=== PATIENT | male | born 1975 | race Caucasian/White ===

== ENCOUNTER 2018-05-22 17:11 | Emergency (ER) | payer SELFPAY ==
[2018-05-22] MEDS ORDERED: Fluorescein Sod TOPICAL 0.6* 0.6 MG TEST OPHTHALMIC ONE (19:38)
[2018-05-22] MEDS ORDERED: Tetracaine 0.5% OPTH.SOL 4 ML* 1 DROP BTL ONE (19:38)
[2018-05-22] MEDS ORDERED: Polymyx/Trimethoprim OPTH* 10 ML BTL RIGHT EYE ONE (20:18)
--- NOTE | 2018-05-22 20:18 | ED ---
Throat Pain/Nasal Congestion - HPI Summary HPI Summary: 42-year-old male presents with drainage from right eye and pain right eye. 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 He states he is on medications that make him immune compromised. States he has history of uveitits and glaucoma. Has not had a flareup of glaucoma in years. 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 Sometimes sees shapes in right eye and has some light sensitivity right eye. States over the past couple days has loss of light sensitivity in right eye. States 8 days ago girl friend was diagnosed with herpes simplex started to develop pain in eye He states that he talked his doctor in [place] put him on Valtrex for the past 3 days. He states no improvement with such. He has been having clear drainage from his eye. - History of Current Complaint Chief Complaint: EDEyeProblem Time Seen by Provider: 05/22/18 19:38 - Allergies/Home Medications Allergies/Adverse Reactions: Allergies Allergy/AdvReac Type Severity Reaction Status Date / Time No Known Allergies Allergy Verified 05/22/18 18:22 PMH/Surg Hx/FS Hx/Imm Hx Endocrine/Hematology History: Reports: Other Endocrine/Hematological Disorders - ankylosis spondylsis Denies: Hx Anticoagulant Therapy Sensory History: Reports: Hx Glaucoma, Hx Legally Blind, Hx Vision Problem Infectious Disease History: No Infectious Disease History: Denies: Traveled Outside the [place] in Last 30 Days - Family History Known Family History: Positive: Diabetes - Social History Alcohol Use: Rare Substance Use Type: Reports: Marijuana Smoking Status (MU): Never Smoked Tobacco Review of Systems Negative: Fever Positive: Drainage, Other - decrease in light senstivity Negative: Chest Pain Negative: Shortness Of Breath All Other Systems Reviewed And Are Negative: Yes Physical Exam Triage Information Reviewed: Yes Vital Signs On Initial Exam: Initial Vitals Temp Pulse Resp BP Pulse Ox 97.6 F 80 16 116/82 98 05/22/18 18:17 05/22/18 18:17 05/22/18 18:17 05/22/18 18:17 05/22/18 18:17 Vital Signs Reviewed: Yes Appearance: Positive: Well-Appearing Skin: Positive: Warm, Dry Head/Face: Positive: Normal Head/Face Inspection Eyes: Positive: Normal, EOMI, Conjunctiva Inflammed, Discharge - watery ENT: Positive: Pharynx normal, TMs normal Respiratory/Lung Sounds: Positive: Clear to Auscultation, Breath Sounds Present Cardiovascular: Positive: Normal, RRR Musculoskeletal: Positive: Normal Neurological: Positive: Normal Psychiatric: Positive: Normal Procedures - Eye Procedure Right Alcaine Drops Administered: Yes - no dendritic ulcer or uptake seen Diagnostics - Vital Signs Vital Signs Temp Pulse Resp BP Pulse Ox 05/22/18 18:17 97.6 F 80 16 116/82 98 - Laboratory Lab Statement: Any lab studies that have been ordered have been reviewed, and results considered in the medical decision making process. EENT Course/Dx - Course Course Of Treatment: 42-year-old male presents with drainage from right eye and pain right eye. 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 He states he is on medications that make him immune compromised. States he has history of uveitits and glaucoma. Has not had a flareup of glaucoma in years. 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 Sometimes sees shapes in right eye and has some light sensitivity right eye. States over the past couple days has loss of light sensitivity in right eye. States 8 days ago girl friend was diagnosed with herpes simplex started to develop pain in eye He states that he talked his doctor in [place] put him on Valtrex for the past 3 days. He states no improvement with such. He has been having clear drainage from his eye. On exam conjunctiva injected. Extraocular movements intact. No uptake on fluorescein exam and no dendritic ulcer seen. Will have continue Valtrex. Discussed with Dr. Coronel will have add polytrim in case is conjunctivitis. We'll give referral to optho for further evaluation. Patient understands agrees with plan. - Differential Diagnoses Differential Diagnoses: Conjunctivitis, Corneal Abrasion, Glaucoma, Keratitis, Uveitis - Diagnoses Provider Diagnoses: Eye drainage Discharge - Sign-Out/Discharge Documenting (check all that apply): Patient Departure - Discharge Plan Condition: Good Disposition: HOME Referrals: No Primary Care Phys,NOPCP [Primary Care Provider] - Caleb Hanson MD [Medical Doctor] - Additional Instructions: Place 1 drop in eye four times a day for 5 days continue valtrex Wash hands after touching eye Follow up with ophthalmology Return to ED if develop any new or worsening symptoms - Billing Disposition and Condition Condition: GOOD Disposition: Home
[2018-05-22 20:41] VITALS: BP 137/94
== END 2018-05-22 20:40 | disposition home or self-care (01) ==
LOC: ED 17:11
DX: H57.8 Other specified disorders of eye and adnexa (principal); H57.11 Ocular pain, right eye
CPT/HCPCS: 99282; A9270-GY

== ENCOUNTER 2019-06-03 22:53 | Emergency (ER) | payer MEDICARE, OTHER ==
[2019-06-03 23:50] LABS: ABS Eosinophils 0.1 10^3/ul (0-0.6); ABS Lymphocytes 1.3 10^3/ul (1.0-4.8); ABS Monocytes 0.7 10^3/ul (0-0.8); Eosinophil % 0.7 %; Hematocrit 37 % (42-52); Hemoglobin 11.9 g/dL (14.0-18.0); Lymphocyte % 12.9 %; Mean Corpuscular HGB Conc 33 g/dL (31-36); Mean Corpuscular Hemoglobin 24 pg (27-31); Mean Corpuscular Volume 75 fL (80-94); Mean Platelet Volume 6.9 fL (7.4-10.4); Nucleated Red Blood Cells % 0.1; Platelet Count 299 10^3/uL (150-450); Red Cell Distribution Width 16 % (10-15)
[2019-06-04 00:10] LABS: Albumin 3.6 g/dL (3.2-5.2); Albumin/Globulin Ratio 0.8 (1-3); BUN/Creatinine Ratio 15.4 (8-20); C Reactive Protein 221.33 mg/L (<8.01); Calcium 8.9 mg/dL (8.6-10.3); EGFR African American 132.7 (>60); EGFR Non-African American 109.7 (>60); Globulin 4.4 g/dL (2-4); Potassium 3.9 mmol/L (3.5-5.0); Total Bilirubin 0.5 mg/dL (0.2-1.0)
--- NOTE | 2019-06-04 00:56 | ED ---
Skin Complaint - HPI Summary HPI Summary: Patient is a 43 y/o M w/ Hx of JRA who presents to [facility] with complaints of right leg redness, difficulty walking and fever. He reports fever onset six days ago and redness of right leg onset 4-5 days ago. 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 Patient reports that he was evaluated by a doctor "friend" three days ago, who prescribed him Keflex. He states that he had a conversation with his PCP, who advised him to come to ED as patient has continued to have difficulty with ambulation. He denies injuries and previous issues with skin infections. He is visiting from [place]. On triage, pain is rated 5/10, movement and ambulation aggravate Sx. Home medications and allergies are reviewed. - History of Current Complaint Chief Complaint: EDExtremityLower Time Seen by Provider: 06/03/19 23:14 Stated Complaint: STAPH INFECTION ON RT LEG Hx Obtained From: Patient Onset/Duration: Started Days Ago, Still Present Skin Exposure Onset/Duration: Days Ago Timing: Constant, Lasting Days Current Severity: Moderate Pain Intensity: 5 Pain Scale Used: 0-10 Numeric Skin Location: Leg - right leg Character: Redness Aggravating Symptom(s): Other: - movement, ambulation Alleviating Symptom(s): Nothing Associated Signs & Symptoms: Fever - Allergy/Home Medications Allergies/Adverse Reactions: Allergies Allergy/AdvReac Type Severity Reaction Status Date / Time No Known Allergies Allergy Verified 06/03/19 22:57 PMH/Surg Hx/FS Hx/Imm Hx Endocrine/Hematology History: Reports: Other Endocrine/Hematological Disorders - ankylosis spondylsis Denies: Hx Anticoagulant Therapy Sensory History: Reports: Hx Glaucoma, Hx Legally Blind, Hx Vision Problem Opthamlomology History: Reports: Hx Glaucoma, Hx Legally Blind, Hx Vision Problem Infectious Disease History: No Infectious Disease History: Denies: Traveled Outside the [place] in Last 30 Days - Family History Known Family History: Positive: Diabetes - Social History Alcohol Use: Rare Substance Use Type: Reports: Marijuana Smoking Status (MU): Never Smoked Tobacco Review of Systems Positive: Fever Musculoskeletal: Other - positive - difficulty ambulating Skin: Other - positive - right leg redness All Other Systems Reviewed And Are Negative: Yes Physical Exam - Summary Physical Exam Summary: Appearance: Well-appearing, Well-nourished, lying in bed comfortably Skin: There is erythema and warmth from anterior ankle up the right leg, ending 2-3 inches below the knee. The area is not circumferential and spares several inches on posterior of leg. There is no discrete fluctuance or fluid collection , no lymphangetic streaking. There is no blanching, there are discrete borders. Eyes: sclera anicteric, no conjunctival pallor ENT: mucous membranes moist, pharynx appears normal Neck: Supple, nontender Respiratory: Clear to auscultation, no signs of respiratory distress Cardiovascular: Normal S1, S2. No murmurs. Normal distal pulses in tibial and radial bilaterally. Abdomen: Soft, nontender, normal active bowel sounds present Musculoskeletal: Normal, Strength/ROM Intact Neurological: A&Ox3, awake and alert, mentation is normal, speech is fluent and appropriate Psychiatric: affect is normal, does not appear anxious or depressed Triage Information Reviewed: Yes Vital Signs On Initial Exam: Initial Vitals Temp Pulse Resp BP Pulse Ox 98.1 F 109 15 110/81 97 06/03/19 22:55 06/03/19 22:55 06/03/19 22:55 06/03/19 22:55 06/03/19 22:55 Vital Signs Reviewed: Yes Diagnostics - Vital Signs Vital Signs Temp Pulse Resp BP Pulse Ox 06/03/19 23:21 89 121/79 98 06/03/19 23:14 95 98 06/03/19 22:55 98.1 F 109 15 110/81 97 - Laboratory Lab Results: Lab Results 06/03/19 06/03/19 06/03/19 Range/Units 23:37 23:37 23:37 WBC 10.0 (3.5-10.8) 10^3/uL RBC 4.90 (4.18-5.48) 10^6 /uL Hgb 11.9 L (14.0-18.0) g/dL Hct 37 L (42-52) % MCV 75 L (80-94) fL MCH 24 L (27-31) pg MCHC 33 (31-36) g/dL RDW 16 H (10-15) % Plt Count 299 (150-450) 10^3/uL MPV 6.9 L (7.4-10.4) fL Neut % (Auto) 79.7 % Lymph % (Auto) 12.9 % [place] % (Auto) 6.5 % Eos % (Auto) 0.7 % Baso % (Auto) 0.2 % Absolute Neuts (auto) 8.0 H (1.5-7.7) 10^3/ul Absolute Lymphs (auto) 1.3 (1.0-4.8) 10^3/ul Absolute Monos (auto) 0.7 (0-0.8) 10^3/ul Absolute Eos (auto) 0.1 (0-0.6) 10^3/ul Absolute Basos (auto) 0.0 (0-0.2) 10^3/ul Absolute Nucleated RBC 0.0 10^3/ul Nucleated RBC % 0.1 Sodium 137 (135-145) mmol/L Potassium 3.9 (3.5-5.0) mmol/L Chloride 100 L (101-111) mmol/L Carbon Dioxide 29 (22-32) mmol/L Anion Gap 8 (2-11) mmol/L BUN 12 (6-24) mg/dL Creatinine 0.78 (0.67-1.17) mg/dL Est GFR ( Amer) 132.7 (>60) Est GFR (Non-Af Amer) 109.7 (>60) BUN/Creatinine Ratio 15.4 (8-20) Glucose 104 H (70-100) mg/dL Lactic Acid 0.7 (0.5-2.0) mmol/L Calcium 8.9 (8.6-10.3) mg/dL Total Bilirubin 0.50 (0.2-1.0) mg/dL AST 38 (13-39) U/L ALT 42 (7-52) U/L Alkaline Phosphatase 114 H (34-104) U/L C-Reactive Protein 221.33 H (<8.01) mg/L Total Protein 8.0 (6.4-8.9) g/dL Albumin 3.6 (3.2-5.2) g/dL Globulin 4.4 H (2-4) g/dL Albumin/Globulin Ratio 0.8 L (1-3) Result Diagrams: 06/03/19 23:37 06/03/19 23:37 Lab Statement: Any lab studies that have been ordered have been reviewed, and results considered in the medical decision making process. Re-Evaluation - Re-Evaluation First Eval Re-Evaluation Time: 00:19 Comment: Results of bloodwork were discussed with the patient. He will be discharged to home and is advised to follow up with a pole sander operator. He is agreeable with this plan. Course/Dx - Course Course Of Treatment: Patient is a 43 y/o M w/ Hx of JRA who presents to [facility] with complaints of right leg redness, difficulty walking and fever. He reports fever onset six days ago and redness of right leg onset 4-5 days ago. 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 Patient reports that he was evaluated by a doctor "friend" three days ago, who prescribed him Keflex. He states that he had a conversation with his PCP, who advised him to come to ED as patient has continued to have difficulty with ambulation. He denies injuries and previous issues with skin infections. On physical exam, there is erythema and warmth from anterior ankle up the right leg, ending 2-3 inches below the knee. The area is not circumferential and spares several inches on posterior of leg. There is no discrete fluctuance or fluid collection, no lymphangetic streaking. There is no blanching, there are discrete borders. Bloodwork was obtained. Abnormal values include Hgb 11.9 Hct 37, MCV 75, MCH 24, RDW 16, MPV 6.9, absolute neuts 8, chloride 100, glucose 104, alk phos 114, CRP 221.33, globulin 4.4, albumin/globulin ratio 0.8. Results of bloodwork were discussed with the patient. He will be discharged to home and is advised to follow up with a pole sander operator. Strict return precautions were given. He is agreeable with this plan. - Diagnoses Provider Diagnoses: Skin rash, Cellulitis, Vasculitis Discharge ED - Sign-Out/Discharge Documenting (check all that apply): Patient Departure - discharge Patient Received Moderate/Deep Sedation with Procedure: No - Discharge Plan Condition: Good Disposition: HOME Patient Education Materials: Cellulitis (ED), Acute Rash (ED) Referrals: Salty Ryan MD [Medical Doctor] - Additional Instructions: This rash has some features that are not typical for a simple skin infection ( cellulitis). I am concerned that it could be some type of vasculitis related to your JRA. Having it seen by a pole sander operator and perhaps biopsied if necessary would be the next step here. In the meantime continue to the antibiotic. If the rash gets worse, and you can't get a timely appt with the pole sander operator, return to the ED so we can see what the next step should be. - Billing Disposition and Condition Condition: GOOD Disposition: Home - Attestation Statements Document Initiated by Pranay: Yes Documenting Scribe: ZAYNAB FRANKLIN Provider For Whom Pranay is Documenting (Include Credential): DEXTER CONN MD Scribe Attestation: I, ZAYNAB FRANKLIN, scribed for DEXTER CONN MD on 06/05/19 at 0516. Scribe Documentation Reviewed: Yes Provider Attestation: The documentation as recorded by the ZAYNAB quiñonez accurately reflects the service I personally performed and the decisions made by me, DEXTER CONN MD Status of Scrmarium Document: Viewed
[2019-06-04 01:52] VITALS: BP 116/80
== END 2019-06-04 01:50 | disposition home or self-care (01) ==
LOC: ED 22:53
DX: L03.115 Cellulitis of right lower limb (principal); R21 Rash and other nonspecific skin eruption; I77.6 Arteritis, unspecified; R50.9 Fever, unspecified; Z96.643 Presence of artificial hip joint, bilateral; Z96.653 Presence of artificial knee joint, bilateral
CPT/HCPCS: 36415; 80053; 83605; 85025; 86140; 87040; 99282